=== PATIENT | female | born 1990 | race Caucasian/White ===

== ENCOUNTER 2016-10-19 19:15 | Emergency (ER) | payer OTHER ==
[2016-10-19 19:24] VITALS: RESP 16; TEMP 98.2
[2016-10-19] MEDS ORDERED: IBUPROFEN 600 MG TAB PO ONE (19:34)
--- NOTE | 2016-10-19 19:38 | EDPHY ---
H & P Stated Complaint: dropped keg on R foot HPI/ROS: CHIEF COMPLAINT: Crush injury to foot from beer case HISTORY OF PRESENT ILLNESS: Patient was at work moving a beer keg from on top of another beer keg. She says that it was heavier than she thought it would be and began to fall. She was able to slow it down but it fell directly on the right foot. It was full. It was minimally painful at that time. She continued to work for another hour became severely painful. There is bruising and swelling to the dorsum of the right foot there is minimal pain in the right sepulveda. No numbness or tingling. Too painful for her to walk on at this time. No injury elsewhere. No orthopedic injuries in the past. No bleeding disorders. No other associated complaints or modifying factors. PRIOR ORTHO INJURIES: None ESTABLISHED ORTHOPEDIST: None REVIEW OF SYSTEMS: Ten systems reviewed and are negative unless otherwise noted in the HPI EXAMINATION General Appearance: Alert, no distress Cardiovascular: Pulses normal throughout. Symmetric DP and PT pulses 2+. Brisk cap refill Neurological: A&O, sensory symmetric, strength symmetric. No footdrop. Skin: Warm and dry, no rash. There is ecchymosis to the dorsum of the right midfoot. There is no laceration. Extremities: Significant tenderness to the dorsum of the right midfoot. There is no tenderness of the right malleoli or calcaneus. There is minimal tenderness of the distal tibia. Range of motion is intact but severely painful. No cyanosis or pallor. Neurovascular intact. Psychiatric: Mood and affect normal DIFFERENTIAL DIAGNOSES: Including but not limited to crush injury, fracture, dislocation, fracture dislocation, sprain, strain, contusion, hematoma MDM: 7:35 p.m. Crush injury to the dorsum of the right foot in the anterior sepulveda from a beer keg. There is ecchymosis and edema. She is neurovascular intact. X-rays of the tib-fib and foot have been ordered. 8:10 p.m. No acute fractures of the foot or tib-fib as read by radiologist. She remains neurovascular intact. I will place her in a postop shoe and crutches for symptomatic relief. She is weight-bearing as tolerated. Advance activity slowly. This was a work related injury, thus she is instructed to follow up with her work comp clinic. She is comfortable this plan. She is discharged home stable condition, neurovascular intact. ED precautions discussed. ED Precautions: Worsening pain. Erythema, edema, cyanosis, pallor, paresthesia or anesthesia. SUPERVISION: This patient was independently evaluated without direct examination by the attending physician. Case was discussed with attending physician. Source: Patient Exam Limitations: No limitations - Personal History LMP (Females 10-55): 15-21 Days Ago Current Tetanus/Diphtheria Vaccine: Unsure Current Tetanus Diphtheria and Acellular Pertussis (TDAP): Unsure - Medical/Surgical History Hx Asthma: Yes Hx Chronic Respiratory Disease: No Hx Diabetes: No Hx Cardiac Disease: No Hx Renal Disease: No Hx Cirrhosis: No Hx Alcoholism: No Hx HIV/AIDS: No Hx Splenectomy or Spleen Trauma: No Other PMH: tonsilectomy, inguinal hernia repair, asthma, anxiety - Social History Smoking Status: Never smoked Constitutional: Initial Vital Signs Temperature (C) 98.2 F 10/19/16 19:20 Heart Rate 76 10/19/16 19:20 Respiratory Rate 16 10/19/16 19:20 Blood Pressure 109/80 10/19/16 19:20 O2 Sat (%) 97 10/19/16 19:20 O2 Delivery Mode Room Air Allergies/Adverse Reactions: Penicillins Allergy (Verified 10/19/16 19:19) Home Medications: Medication Instructions Recorded Hydrocodone/APAP 5/325 [[place] 1 - 2 tab PO Q4H PRN #10 tab 10/19/16 5/325 (*)] Medical Decision Making - Diagnostics Imaging Results: Imaging Impressions Foot X-Ray 10/19/16 19:26 Impression: Normal foot series. Tibia/Fibula X-Ray 10/19/16 19:34 Impression: Normal right tibia and fibula series. - Data Points Medications Given: Discontinued Medications Ibuprofen (Motrin) 600 mg PO EDNOW ONE Stop: 10/19/16 19:35 Last Admin: 10/19/16 19:39 Dose: 600 mg Departure - Departure Disposition: Home, Routine, Self-Care Clinical Impression: Crush injury of foot Qualifiers: Encounter type: initial encounter Laterality: right Qualified Code(s): S97.81XA - Crushing injury of right foot, initial encounter Foot contusion Qualifiers: Encounter type: initial encounter Laterality: right Qualified Code(s): S90.31XA - Contusion of right foot, initial encounter Condition: Good Instructions: Crush Injury (ED) Referrals: MAM[facility] BETANCOURT [Other] - As per Instructions Jason Del oTro MD [Medical Doctor] - As per Instructions Stand Alone Forms: Work Comp Follow Up Prescriptions: Hydrocodone/APAP 5/325 [[place] 5/325 (*)] 1 - 2 tab PO Q4H PRN #10 tab PRN Reason: Pain, Moderate
[2016-10-19 20:34] VITALS: BP 112/65; PULSE 73; O2SAT 96
== END 2016-10-19 20:35 | disposition home or self-care (01) ==
DX: S97.81XA Crushing injury of right foot, initial encounter (principal); S90.31XA Contusion of right foot, initial encounter; J45.909 Unspecified asthma, uncomplicated; W20.8XXA Other cause of strike by thrown, projected or falling object, initial encounter; Y92.69 Other specified industrial and construction area as the place of occurrence of the external cause; Y99.0 Civilian activity done for income or pay; Y93.89 Activity, other specified
CPT/HCPCS: L3260

== ENCOUNTER 2017-09-25 13:49 | Emergency (ER) | payer OTHER ==
--- NOTE | 2017-09-25 14:08 | EDPHY ---
H & P Time Seen by Provider: 09/25/17 14:07 HPI/ROS: CHIEF COMPLAINT: Headache HISTORY OF PRESENT ILLNESS: Patient tells me that she was working out at 1:10 p.m. Today doing squats with some hand weights when she had sudden onset of severe occipital headache associated with "darkening" of her vision and losing feeling in both of her hands. It radiated into her upper neck and still is moderate. Associated with some dizziness. She does not currently have double vision or other visual symptoms or weakness or numbness in extremities. No ataxia or vertigo. Was relatively sudden in onset but not worst of life. Not associated with vomiting. REVIEW OF SYSTEMS: Eye: HPI, vision back to normal now. ENT: no sore throat or earache Cardiac: no chest pain or syncope Pulmonary: no cough or SOB Abdomen: no vomiting, diarrhea, abdominal pain Musculoskeletal: Neck pain as HPI Skin: no rash Neuro: HPI Constitutional: no fever : no urinary symptoms A comprehensive 10 point review of systems is otherwise negative aside from elements mentioned in the history of present illness. PAST MEDICAL HISTORY: History of tonsillectomy and inguinal hernia repair, asthma, anxiety Family history: Significant for ischemic stroke in her father, negative for intracranial aneurysm Social history: Home is [place] General Appearance: Alert and conversant, cooperative. Eyes: No scleral icterus. Pupils equal and reactive extraocular motion intact. ENT, Mouth: Normal mucous membranes. Normal tympanic membranes. Respiratory: Normal respiratory effort, breath sounds equal, lungs are clear to auscultation. Cardiovascular: Regular rate and rhythm. Gastrointestinal: Abdomen is soft and non tender. Neurological: Alert, face symmetric, normal motor and sensory in extremities. Speech is fluent, no pronator drift, normal [id number] bilaterally. Skin: Warm and dry, no rashes. Specifically no occipital zoster. Musculoskeletal: Normal range of motion of the neck, no meningeal signs. Psychiatric: Not agitated. Emergency Department course/MDM: Tylenol 650 mg, CT head discussed and consented to evaluate for possibility of subarachnoid. Differential considered, including but not limited to subarachnoid, tension headache, great vessel dissection, AGILE TEST LEAD infection such as meningitis. Normal vision now. 1545: Normal non-contrast head CT per [place], angiography ordered and results discussed with the patient. Oral ibuprofen 600. 1651: Negative CTA per Dr. Puentes. No dissection, no aneurysm. Results discussed with the patient. Her CT was within 6 hr of onset of symptoms , so it should be quite sensitive for subarachnoid. She was warned that 100% exclusion is not possible without lumbar puncture, she declines. She clearly has capacity to make decisions regarding her care, does understand the potential morbidity and mortality risks of delay in diagnosis of SAH. Outpatient referral to Neurology. Smoking Status: Never smoked Constitutional: Initial Vital Signs Temperature (C) 36.4 C 09/25/17 13:51 Heart Rate 82 09/25/17 13:51 Respiratory Rate 16 09/25/17 13:51 Blood Pressure 119/75 09/25/17 13:51 O2 Sat (%) 95 09/25/17 13:51 O2 Delivery Mode Room Air Allergies/Adverse Reactions: Penicillins Allergy (Verified 09/25/17 13:54) Home Medications: Medication Instructions Recorded buPROPion 09/25/17 Medical Decision Making - Diagnostics Imaging Results: Imaging Impressions Head CT 09/25/17 14:16 Impression: 1. No acute intracranial findings. 2. 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 Findings discussed with Zac Tavarez MD on September 25, 2017 at 1542 hours. Head CTA 09/25/17 15:[address] angiogram of the neck with normal variation as detailed above. 2. Normal CT angiogram of [place], as detailed above. Note: All calculations were performed using NASCET criteria. Findings discussed with Zac Tavarez M.D. at 16:43 hour, 09/25/2017. Neck CTA 09/25/17 15:[address]: [address] angiogram of the neck with normal variation as detailed above. 2. Normal CT angiogram of [place], as detailed above. Note: All calculations were performed using NASCET criteria. Findings discussed with Zac Tavarez M.D. at 16:43 hour, 09/25/2017. Imaging: Discussed imaging studies w/ call manager Radiologist - Data Points Laboratory Results: Laboratory Results 09/25/17 14:20 09/25/17 14:20 09/25/17 09/25/17 09/25/17 14:20 14:20 14:20 WBC 9.03 10^3/uL 10^3/uL (3.80-9.50) RBC 5.28 10^6/uL 10^6/uL (4.18-5.33) Hgb 16.1 g/dL g/dL (12.6-16.3) Hct 47.8 % H % (38.0-47.0) MCV 90.5 fL fL (81.5-99.8) MCH 30.5 pg pg (27.9-34.1) MCHC 33.7 g/dL g/dL (32.4-36.7) RDW 12.6 % % (11.5-15.2) Plt Count 293 10^3/uL 10^3/uL (150-400) MPV 11.5 fL fL (8.7-11.7) Neut % (Auto) 66.8 % % (39.3-74.2) Lymph % (Auto) 22.8 % % (15.0-45.0) Adams % (Auto) 8.7 % % (4.5-13.0) Eos % (Auto) 0.9 % % (0.6-7.6) Baso % (Auto) 0.6 % % (0.3-1.7) Nucleat RBC Rel Count 0.0 % % (0.0-0.2) Absolute Neuts (auto) 6.03 10^3/uL 10^3/uL (1.70-6.50) Absolute Lymphs (auto) 2.06 10^3/uL 10^3/uL (1.00-3.00) Absolute Monos (auto) 0.79 10^3/uL 10^3/uL (0.30-0.80) Absolute Eos (auto) 0.08 10^3/uL 10^3/uL (0.03-0.40) Absolute Basos (auto) 0.05 10^3/uL 10^3/uL (0.02-0.10) Absolute Nucleated RBC 0.00 10^3/uL 10^3/uL (0-0.01) Immature Gran % 0.2 % % (0.0-1.1) Immature Gran # 0.02 10^3/uL 10^3/uL (0.00-0.10) Sodium 141 mEq/L mEq/L (135-145) Potassium 4.2 mEq/L mEq/L (3.3-5.0) Chloride 105 mEq/L mEq/L (97-110) Carbon Dioxide 25 mEq/l mEq/l (22-31) Anion Gap 11 mEq/L mEq/L (8-16) BUN 12 mg/dL mg/dL (7-23) Creatinine 0.7 mg/dL mg/dL (0.6-1.0) Estimated GFR > 60 Glucose 72 mg/dL mg/dL (70-100) Calcium 9.9 mg/dL mg/dL (8.5-10.4) Beta HCG, Qual NEGATIVE Medications Given: Discontinued Medications Acetaminophen (Tylenol) 650 mg PO EDNOW ONE Stop: 09/25/17 14:17 Last Admin: 09/25/17 14:26 Dose: 650 mg Ibuprofen (Motrin) 600 mg PO EDNOW ONE Stop: 09/25/17 15:45 Last Admin: 09/25/17 15:51 Dose: 600 mg Departure - Departure Disposition: Home, Routine, Self-Care Clinical Impression: Headache Qualifiers: Headache type: unspecified Headache chronicity pattern: acute headache Intractability: not intractable Qualified Code(s): R51 - Headache Condition: Good Instructions: Acute Headache (ED) Referrals: [facility] [Other] - As per Instructions William Haney DO [Medical Doctor] - As per Instructions (Neurology referral to discuss headache prevention strategies.)
[2017-09-25] MEDS ORDERED: ACETAMINOPHEN 325 MG TAB PO ONE (14:16)
[2017-09-25 14:43] LABS: PLATELET COUNT 293 10^3/uL (150-400)
[2017-09-25] MEDS ORDERED: IBUPROFEN 600 MG TAB PO ONE (15:44)
[2017-09-25] MEDS ORDERED: IOPAMIDOL (ISOVUE 370) 100 ML BTL IV ONE (15:51)
[2017-09-25 17:07] VITALS: BP 112/65
== END 2017-09-25 17:06 | disposition home or self-care (01) ==
DX: R51 Headache (principal); J45.909 Unspecified asthma, uncomplicated
CPT/HCPCS: Q9967